=== PATIENT | female | born 1955 | race Caucasian/White ===

== ENCOUNTER 2016-10-07 13:46 | Emergency (ER) | payer OTHER ==
[2016-10-07 13:53] VITALS: TEMP 98.8
--- NOTE | 2016-10-07 14:14 | EDPHY ---
H & P Stated Complaint: Chest Pressure x 4 Days Time Seen by Provider: 10/07/16 14:13 HPI/ROS: CHIEF COMPLAINT: Chest pressure, mild dyspnea HISTORY OF PRESENT ILLNESS: The patient presents to the ED for evaluation of chest pressure and mild dyspnea. The patient is approximately 1 week out from a right shoulder repair. The patient did have some postoperative hypoxemia. This has improved over the past day. The patient reports 3-4 day history of a vagal left-sided chest fullness. The symptoms are worsened with swallowing deep breaths. It is not uniformly pleuritic. The patient denies exertional chest pain or shortness of breath. She has had a low-grade fever of 99-100. She has no complaints of cough. The patient has no prior history of PE or DVT. She does not smoke nor is there a family history of thromboembolic event. REVIEW OF SYSTEMS: A comprehensive 10 point review of systems is otherwise negative aside from elements mentioned in the history of present illness. Source: Patient Exam Limitations: No limitations - Personal History Current Tetanus Diphtheria and Acellular Pertussis (TDAP): Yes Tetanus Vaccine Date: 2006 - Medical/Surgical History Hx Asthma: No Hx Chronic Respiratory Disease: No Hx Diabetes: No Hx Cardiac Disease: No Hx Renal Disease: No Hx Cirrhosis: No Hx Alcoholism: No Hx HIV/AIDS: No Hx Splenectomy or Spleen Trauma: No Other PMH: HTN / lung+Thoracic aorta cyst surgery. Hormone replacement therapy , recurrent bronchitis, cholesterol, sinus surg, spinal fusion L4-L5, R rotator cuff - Social History Smoking Status: Never smoked - Physical Exam Exam: General Appearance: Alert, no distress Eyes: Pupils equal and round no pallor or injection ENT, Mouth: Mucous membranes moist Respiratory: There are no retractions, lungs are clear to auscultation Cardiovascular: Regular rate and rhythm Gastrointestinal: Abdomen is soft and nontender, no masses, bowel sounds normal Neurological: A&O, normal motor function, normal sensory exam, normal cranial nerves Skin: Warm and dry, no rashes Musculoskeletal: Neck is supple nontender Extremities: Splint to the right shoulder, incision clean dry and intact Constitutional: Initial Vital Signs Temperature (C) 37.1 C 10/07/16 13:49 Heart Rate 61 10/07/16 13:49 Respiratory Rate 18 10/07/16 13:49 Blood Pressure 124/61 H 10/07/16 13:49 O2 Sat (%) 95 10/07/16 13:49 O2 Delivery Mode Room Air Allergies/Adverse Reactions: acetaminophen [From Vicodin] Allergy (Verified 09/14/15 20:12) hydrocodone bitartrate [From Vicodin] Allergy (Verified 09/14/15 20:12) Home Medications: Medication Instructions Recorded Rosuvastatin Calcium [Crestor 40mg mg PO DAILY 10/20/11 (RX)] Venlafaxine HCl 50 mg PO 10/20/11 Aspirin [Aspirin 325 mg (OTC)] 09/14/15 Ciprofloxacin [Cipro] 500 mg PO BID #4 tab 09/14/15 Hydrochlorothiazide [HCTZ (RX)] 09/14/15 Nebivolol HCl [Bystolic] 09/14/15 Omeprazole [Prilosec 20 mg] 09/14/15 Medical Decision Making - Diagnostics EKG Interpretation: EKG: Complete interpretation has been separately recorded in the [facility] archive. Summary impression: Sinus rhythm, rate 57 Imaging: Imaging Impressions Chest/Thorax CTA 10/07/16 15:17 Impression: 1. No evidence for pulmonary embolic disease. 2. Dilated distal esophagus. Scleroderma? Results discussed with Dr. Wolfgang Meléndez at 4:09 PM. General information for patients regarding this examination can be found at [email or web address]. If you have questions or comments about this report, please contact me at (hospital) or [phone] (cell). ED Course/Re-evaluation: Patient presents to the ED for evaluation of vague left-sided chest pain. The patient has no evidence of a pulmonary embolism or pneumonia on her chest CT scan. She does have a mildly dilated esophagus which she has had before in the past of uncertain significance. The patient has no evidence of acute ischemia on her EKG. The patient does have mild esophageal dilatation of uncertain significance. She can follow this up with Gastroenterology as an outpatient. Differential Diagnosis: Differential diagnosis considered includes acute coronary syndrome, pulmonary embolism, aspiration pneumonia, pneumothorax - Data Points Laboratory Results: 10/07/16 15:08 POC Hgb 13.9 gm/dL gm/dL (12.3-15.9) POC Hct 41 % % (35.5-47.5) POC Sodium 138 mEq/L mEq/L (134-144) POC Potassium 4.7 mEq/L mEq/L (3.3-5.0) POC Chloride 97 mEq/L mEq/L (96-108) POC BUN 15 mg/dL mg/dL (7-23) POC Creatinine 0.6 mg/dL mg/dL (0.6-1.2) POC Glucose 89 mg/dL mg/dL (70-100) Point of Care Test Results: 10/07/16 15:08 POC Sodium 138 POC Potassium 4.7 POC Chloride 97 POC BUN 15 POC Creatinine 0.6 POC Glucose 89 Departure - Departure Disposition: Home, Routine, Self-Care Clinical Impression: Chest pain Condition: Good Instructions: Chest Pain (ED) Additional Instructions: 1. Your CT scan demonstrates no evidence of a blood clot, pneumonia or collapsed lung. You do have some mild dilation of your esophagus which has been seen in the past. The clinical significance of this is somewhat uncertain. We do recommend following up with Gastroenterology as this may be contributing to your symptoms today. 2. Please follow up as scheduled with your primary care provider. Please schedule a follow-up visit with gastroenterology to review the results of your CT scan over the next several weeks. 3. Return to the ED for markedly worsening symptoms or other concerns. Referrals: Tamiko Tadeo MD [Primary Care Provider] - As per Instructions
--- NOTE | 2016-10-07 14:19 | CPEKG ---
Heart Rate: 57 RR Interval: 1053 P-R Interval: 204 QRSD Interval: 90 QT Interval: 412 QTC Interval: 401 P [place]: 40 QRS [place]: 25 T Wave [place]: 59 EKG Severity - NORMAL ECG - EKG Impression: SINUS RHYTHM Electronically Signed By: Vasyl Meléndez 07-Oct-2016 17:06:40
[2016-10-07] MEDS ORDERED: IOPAMIDOL (ISOVUE 370) 100 ML BTL IV ONE (15:34)
[2016-10-07 16:11] VITALS: RESP 16
[2016-10-07 16:52] VITALS: BP 120/61; PULSE 53; O2SAT 93
== END 2016-10-07 16:52 | disposition home or self-care (01) ==
DX: R07.89 Other chest pain (principal); I10 Essential (primary) hypertension; Z79.82 Long term (current) use of aspirin
CPT/HCPCS: 82947-QW; Q9967

== ENCOUNTER → 2017-02-01 | Outpatient (CLI) | payer OTHER | LOC: FIMAGING 16:03 | PROVIDERS: ATTEND Internal Medicine | DX: Z12.31 Encounter for screening mammogram for malignant neoplasm of breast (principal) | CPT/HCPCS: G0202 ==

== ENCOUNTER → 2018-09-22 | Outpatient (CLI) | payer OTHER | LOC: EMCIMAGING 07:16 | PROVIDERS: ATTEND Internal Medicine | DX: R19.00 Intra-abdominal and pelvic swelling, mass and lump, unspecified site (principal); K76.0 Fatty (change of) liver, not elsewhere classified | CPT/HCPCS: 76700-PN ==

== ENCOUNTER → 2018-10-12 | Outpatient (CLI) | payer OTHER | LOC: EMCIMAGING 07:20 | PROVIDERS: ATTEND Internal Medicine | DX: R94.6 Abnormal results of thyroid function studies (principal); E04.1 Nontoxic single thyroid nodule | CPT/HCPCS: 76536-PN ==

== ENCOUNTER 2018-11-08 07:08 | Observation (INO) | payer OTHER ==
--- NOTE | 2018-11-08 06:54 | POSTANESTH ---
Post Anesthetic Evaluation Cardiovascular Status: Similar to Pre-Op Cond Respiratory Status: Normal, Stable Level of Consciousness/Mental Status: Can Participate in Eval, Alert and Oriented Pain Control: Adequate, Prn Tx Ordered Nausea/Vomiting Control: Adequate, Prn Tx Ordered Complications Possibly Related to Anesthesia: None Noted (MAC only, no meds administered.)
--- NOTE | 2018-11-08 06:58 | PDANEPAE ---
ANE History of Present Illness 63 yo with SVT, possibly AT, for ablation. ANE Past Medical History - Cardiovascular History Hx Hypertension: Yes Hx Arrhythmias: Yes Hx Chest Pain: No Hx CHF / Valvular Disease: No Hx Palpitations: Yes Cardiovascular History Comment: hypercholesterolemia - Pulmonary History Hx COPD: No Hx Asthma/Reactive Airway Disease: No Hx Recent Upper Respiratory Infection: No Hx Oxygen in Use at Home: No Hx Sleep Apnea: No Pulmonary History Comment: recurrent bronchitis. benign mass resected from L chest in the past - Endocrine History Hx Diabetes: No Hypothyroid: No Hyperthyroid: No Obesity: no - Renal History Hx Renal Disorders: No - Liver History Hx Hepatic Disorders: No - GI History Gastrointestinal History Comment: dilated distal esophagus - Chronic Pain History Chronic Pain: No - Surgical History Prior Surgeries: shoulder surgery ANE Review of Systems Review of Systems: - Systems Respiratory: Reports: shortness of breath ANE Patient History - Allergies Allergies/Adverse Reactions: acetaminophen [From Vicodin] Allergy (Verified 10/18/18 10:30) Vomiting hydrocodone bitartrate [From Vicodin] Allergy (Verified 10/18/18 10:30) Vomiting - Home Medications Home Medications: Aspirin [Aspirin 81mg (*)] 81 mg PO DAILY 10/19/18 [Last Taken Unknown] Cholecalciferol Vit D3 [Vitamin D3 (*)] 3,000 units PO DAILY 10/19/18 [Last Taken Unknown] Estradiol [VAGIFEM] 10 mcg VG Q3D 10/19/18 [Last Taken Unknown] Herbals/Supplements -Info Only 1 ea PO DAILY 10/19/18 [Last Taken Unknown] Hydrochlorothiazide [HCTZ (*)] 25 mg PO DAILY 10/19/18 [Last Taken Unknown] Multivitamins [Multivitamin (*)] 1 each PO DAILY 10/19/18 [Last Taken Unknown] [place]-3 Fatty Acids [Fish Oil 1000 mg (*)] 1,000 mg PO DAILY 10/19/18 [Last Taken Unknown] Rosuvastatin Calcium [Crestor 10mg (RX)] 2.5 mg PO DAILY 10/19/18 [Last Taken Unknown] tiZANidine HCL [Zanaflex 2MG (*)] 2 mg PO HS 10/19/18 [Last Taken Unknown] - NPO status NPO Status: no food or drink >8 hours NPO Since - Liquids (Date): 05/15/19 NPO Since - Liquids (Time): 05:45 - Anes Hx Anes Hx: post operative nausea and vomiting - Smoking Hx Smoking Status: Never smoked - Family Anes Hx Family Anes Hx: neg - N/A ANE Labs/Vital Signs - Labs Result Diagrams: 11/08/18 07:30 11/08/18 07:30 - Vital Signs Vital Signs: reviewed preoperatively; see RN documention for details ANE Physical Exam - Airway Neck exam: FROM Mallampati Score: Class 2 Mouth exam: normal dental/mouth exam - Pulmonary Pulmonary: clear to auscultation - Cardiovascular Cardiovascular: regular rate and rhythym - ASA Status ASA Status: III ANE Anesthesia Plan Anesthesia Plan: general endotracheal anesthesia Total IV Anesthesia: Yes
[2018-11-08] MEDS ORDERED: NS 1,000 ML IV ONE (07:11)
[2018-11-08] MEDS ORDERED: LIDOCAINE 1% 300 MG/30 ML SDV ONE (08:04)
[2018-11-08] MEDS ORDERED: HEPARIN 10,000 UNIT/10 ML MDV (1,000 UNIT/ML) ONE (08:04)
[2018-11-08] MEDS ORDERED: BUPIVACAINE 0.5% 30 ML SDV ONE (08:04)
[2018-11-08] MEDS ORDERED: ISOPROTERENOL HCL/D5W 0.2 MG/50 ML BAG IV ONE ×2 (08:05→10:29)
[2018-11-08] MEDS ORDERED: IOPAMIDOL (ISOVUE-300) 100 ML BTL ONE (08:05)
[2018-11-08 08:09] LABS: PLATELET COUNT 230 10^3/uL (150-400)
--- NOTE | 2018-11-08 08:25 | PDGENHP ---
History & Physical Chief Complaint: SVT/AT, dyspnea History of Present Illness: 2 recent episodes of chest pain, intermittent dyspnea at rest and with exertion, SVT/AT noted on recent extended ECG monitor Relevant Physical Exam: A&Ox4, no apparent distress, lungs CTA, regular rate and rhythm, S1, S2, pulses 2+ bilaterally, no edema Cardiorespiratory Assessment: Coronary angiogram and SVT/AT ablation was planned for today
[2018-11-08 08:28] LABS: INR 0.87 (0.83-1.16); PROTIME(PATIENT) 11.5 SEC (12.0-15.0)
[2018-11-08] MEDS ORDERED: PROPOFOL/EMULSION 500 MG/50 ML BOTTLE IV ONE ×4 (08:57→11:04)
[2018-11-08] MEDS ORDERED: MIDAZOLAM 2 MG/2 ML VIAL ONE ×2 (08:57)
[2018-11-08] MEDS ORDERED: fentaNYL 100 MCG/2 ML INJ ONE (08:57)
[2018-11-08] MEDS ORDERED: ROCURONIUM 100 MG/10 ML VIAL ONE (09:10)
[2018-11-08] MEDS ORDERED: NEOSTIGMINE METHYLSULFATE 10 MG/10 ML MDV ONE (11:34)
[2018-11-08] MEDS ORDERED: GLYCOPYRROLATE 0.2 MG/1 ML VIAL ONE (11:34)
--- NOTE | 2018-11-08 12:57 | EPPROC ---
Electrophysiology Procedure Note: ELECTROPHYSIOLOGIC STUDY AND CATHETER MEDIATED ABLATION OF FOCAL PARAHISIAN ATRIAL TACHYCARDIA PROCEDURES PERFORMED: 1. EP evaluation with RA/RV/LA pace/record, with arrhythmia induction 2. EP evaluation with RA/RV pace record, insert/reposition catheter, with arrhythmia induction 3. Intracardiac catheter ablation, SVT arrhythmogenic focus 4. 3D mapping 5. Fluoroscopy INDICATION: Recurrent atrial tachycardia Catheters and anesthesia: The patient arrived in the Electrophysiology Laboratory in the fasting state. The right clavicular region, right groin, and left groin area were prepped and draped in the usual sterile manner. Anesthesiologist Dr. Chucky Singleton administered propofol anesthesia. Appropriate non-invasive blood pressure, pulse oximetry and end-tidal CO2 monitoring was established. All catheters were placed percutaneously using the modified Seldinger technique , and advanced into position under fluoroscopic guidance. One #7 [place] deflectable octapolar electrode catheter was advanced to the His-bundle position via the left femoral vein (2mm spacing; except the proximal ring which was 25cm from the tip used for unipolar recordings). One #7 [place] deflectable catheter with 10 pairs of electrodes was placed via the left femoral vein into the coronary sinus. A decapolar MEM (multielectrode mapping) catheter was placed via the right femoral vein along the karyn terminalis and used to map the right atrium and coronary sinus. Programmed stimulation was performed from the right atrium, left atrium ( coronary sinus) and right ventricle. Parahisian pacing demonstrated VA block. There was no antegrade or retrograde slow AV fly pathway conduction. AV WBB 420 ms both pre and post ablation. Heparin was administered to keep ACT > 200 seconds. Programmed stimulation of right atrium during infusion of isoproterenol 1-2 mcg/ min induced an atrial tachycardia. AV dissociation was present. A #7 [place] mapping catheter was introduced into the right atrium and used for mapping AT . Mobi sheath was used. A 3D mapping system (Carsquare) was used. Pentaray and 4 mm catheters were used. A detailed 3D map of the right atrium and coronary sinus showed earliest atrial activation along the septal tricuspid valve, just lateral to the AV node. Unipolar EGM showed sharp negative deflection without R wave. RF applications were delivered to this site. This terminated the tachycardia. 2 of the RF ablations demonstrated junctional automaticity and ablation was promptly terminated. Programmed stimulation in the baseline state and during infusion of isoproterenol 1, 2 and 4 mcg/min post ablation was performed. No tachycardia could be induced. The catheters were removed. The patient was transferred to the cardiovascular holding area in stable condition. Vascular access sheaths were removed in the EP lab after pursestring sutures. Arterial access site was closed with Angioseal (coronary angiogram was done and this has been dictated separately.) There were no apparent complications. CONCLUSIONS: 1. Focal atrial tachycardia, parahisian focus. 2. Successful ablation of focal atrial tachycardia. 3. No apparent complications.
--- NOTE | 2018-11-08 12:59 | PDDXCAT ---
Diagnostic Cath Note - . Date: 11/08/18 Dispatcher Tow Truck: Xavier Indication: CCC Class III and IV angina on medical treatment - Procedure Access: right groin Procedure: left heart catheterization, coronary angiography - Materials Left Heart Cath size: 6F Left Heart Cath materials: JL4.0, JR4.0 - Findings-Left Heart Catheterization LM: normal LAD: normal, tortuous, 2 diagonals LCX: normal RCA: large, dominant, normal Estimated blood loss: <50ml Closure method: Angioseal Assessment: Normal coronary arteries. False positive stress test
[2018-11-08] MEDS: ACETAMINOPHEN 325 MG TAB PO PRN ×2 (13:37→21:10)
[2018-11-08] MEDS ORDERED: IBUPROFEN 600 MG TAB PO PRN (16:25)
[2018-11-08] MEDS ORDERED: tiZANidine HCL 2 MG TAB PO SCH (21:00)
[2018-11-09 04:33] LABS: PLATELET COUNT 216 10^3/uL (150-400)
[2018-11-09] MEDS ORDERED: Herbals/Supplements -Info Only PO SCH (09:00)
[2018-11-09] MEDS ORDERED: ASPIRIN 81 MG CHEWABLE TAB PO SCH (09:00)
[2018-11-09] MEDS ORDERED: MULTIVITAMINS 1 EACH TAB PO SCH (09:00)
[2018-11-09] MEDS ORDERED: OMEGA-3 FATTY ACIDS 1,000 MG CAP PO SCH (09:00)
[2018-11-09] MEDS ORDERED: CHOLECALCIFEROL VIT D3 1,000 UNITS TAB PO SCH (09:00)
[2018-11-09] MEDS ORDERED: ROSUVASTATIN CALCIUM 10 MG TAB PO SCH (09:00)
[2018-11-09] MEDS ORDERED: HYDROCHLOROTHIAZIDE 25 MG TAB PO SCH (09:00)
[2018-11-09 11:31] VITALS: BP 157/95
[2018-11-09] MEDS ORDERED: FLECAINIDE ACETATE 100 MG TAB PO SCH (12:30)
--- NOTE | 2018-11-09 13:21 | GDS ---
[f rep st] DISCHARGE SUMMARY SUPERVISING CUSTOMER SOLUTIONS SPECIALIST: Dr. Jevon Park. ADMISSION DIAGNOSIS: Atrial tachycardia. DISCHARGE DIAGNOSES: Focal atrial tachycardia, parahisian focus status post successful ablation. PROCEDURES PERFORMED DURING HOSPITALIZATION: 1. Electrocardiogram. 2. Echocardiogram. 3. Electrophysiology study. 4. Atrial tachycardia ablation. HOSPITAL COURSE: Patient presented 11/08/2018, for EP study and SVT ablation in the setting of recurrent and symptomatic episodes of SVT. EP study demonstrated a parahisian focal atrial tachycardia, which was successfully ablated. She had no intra-procedure complications and she did very well overnight. However, she has had frequent episodes of atrial tachycardia noted on telemetry, these episodes are symptomatic and quite bothersome. She will be started on flecainide 50 mg twice daily and she will be discharged home in stable condition today. PHYSICAL EXAMINATION: GENERAL: Alert and oriented x4. No apparent distress. VITAL SIGNS: Blood pressure 119/82, heart rate 69, respiratory rate 18, SpO2 is 92% on room air, temp 36.7 degrees Celsius. RESPIRATORY: Lungs are clear to auscultation without adventitious breath sounds. CARDIAC: Irregularly irregular rhythm. Tachycardia present. No murmurs noted. ABDOMEN: Normoactive bowel sounds times all 4 quadrants. No masses or tenderness. Soft to palpation. SKIN: [place], warm, dry without cyanosis, clubbing, or peripheral edema. EXTREMITIES: Bilateral pursestring sutures removed intact without evidence of hematoma, redness, oozing, swelling or warmth from the sites. Pulses are 2+ bilaterally. No edema. LABORATORY STUDIES: Drawn today, demonstrates stable CBC and BMP compared to preprocedure. Troponin is 0.292. Please note the elevated troponin is to be expected in the postprocedure setting. PROCEDURES PERFORMED DURING HOSPITALIZATION: Electrophysiology study and atrial tachycardia ablation as mentioned above. Preliminary review of echocardiogram this morning demonstrates stable systolic function without any wall motion abnormalities or pericardial effusion noted. Electrocardiogram this morning demonstrates ectopic atrial arrhythmia 102 beats per minute. DISCHARGE DISPOSITION: The patient will be discharged home in stable condition. She is under activity restrictions as below. DISCHARGE MEDICATIONS: Please see discharge medication reconciliation sheet for full details. Please note, the patient will continue aspirin daily for at least the next 4 weeks and she will start flecainide 50 mg twice daily. DISCHARGE INSTRUCTIONS: Post atrial tachycardia ablation instructions were reviewed with patient and her in detail. 1. We discussed activity restrictions including lifting no more than 10 pounds and avoidance of submerged bathing for 10 days. 2. She will get up and walk around every 45 minutes for 45 days. 3. We reviewed bleeding precautions, medication plans, monitoring for signs and symptoms of infection, and monitoring for sustained arrhythmia. At the time of discharge, the patient verbalized understanding regarding all discharge instructions without questions or concerns. She will be seen in our Electrophysiology Clinic in 1 week for an EKG and re-evaluation at that time. She will contact us with any new or concerning symptoms in the meantime. Time spent on discharge greater than 30 minutes. /[id number]/MODL MTDD
--- NOTE | 2018-11-09 14:04 | ASDISCHSUM ---
Discharge Information Plan Status:Home with No Needs Medically Cleared to Leave:11/09/2018 Discharge Date:11/09/2018 CM D/C Disposition:Home, Routine, Self-Care ADT D/C Disposition:Home, Routine, Self-Care Projected Discharge Date:11/09/2018 Transportation at D/C:Family Discharge Delay Reason: Follow-Up Date:11/09/2018 Discharge Slot: Final Diagnosis: Placement Information Patient Contact Information Contact Name:DESI Relationship: Address:[address] [place] Phone: [facility]/Zip Code:[place] [address] Email: Financial Information Financial Class:HMO and PPO Plans Primary Plan Desc:[facility] Primary Plan Number:[id number] Secondary Plan Desc: Secondary Plan Number: Assessment Information LACE LACE Length of stay for Answers: 1 day current admission Acuity / Level of Answers: No Care: Did the patient have an inpatient admission? Comorbidities - select Answers: Other Notes: HTN all that apply # of Emergency department Answers: 0 visits in the last 6 months Score: 2 Date Signed: 11/09/2018 02:03 PM Electronically Signed By:Anuja Gill RN Intervention Information
--- NOTE | 2018-11-09 16:33 | ECHO ---
[email or web address] [address] [address] Main: [phone] Echocardiography Examination Transthoracic Name: DUSTIN MOORE MR#: [id number] Study Date: 11/09/2018 Study Time: 09:33 AM Date of : 1955 Age: 63 year(s) Height: 165.1 cm (65 in.) Weight: 76.2 kg (168 lb.) BSA: 1.84 m2 Gender: Female Examination: Echo Contrast: Image Quality: Adequate Rhythm: Heart Rate: BP: 119 mmHg/82 mmHg Indication: F/U Post EP Study Procedure Staff Referring Physician: Development Scientist: Tiffani Hernandez [facility] Reading Physician: Sarai Patino MD Requesting Provider: Ordering Physician: Robert Verdugo Indication: F/U Post EP Study Measurements Chambers AV/MV Label Value Normal Value Label Value Normal Value LVOTd 1.6 cm (1.8cm - 2cm) AV PGmax 7 mmHg LVOT VTI 23.5 cm (18cm - 22cm) AV PGmean 5 mmHg LVDd, 2D 3.9 cm (3.9cm - 5.3cm) AV Vmax 1.36 m/s LVDs, 2D 2.8 cm (2.1cm - 4cm) JESSICA (VTI) 1.4 cm2 IVSd, 2D 1 cm (0.6cm - 1.1cm) MV E Vmax 1.2 m/s LVPWd, 2D 1.1 cm MV DT 99 ms LVEF, BP 62 % (55% - 70%) MV PHT 0.02 s LVEF, 2D 56 % (54% - 74%) MVA PHT 10.5 cm2 LVOT PGmean 3 mmHg MV PHT 21 ms LVOT Vmean 0.76 m/s TV/PV RVDd, 2D 3 cm (1.9cm - 3.8cm) Label Value Normal Value LA Volume, BP 45 ml (22ml - 52ml) RA Pressure 5 mmHg LADs, 2D 3.5 cm (2.7cm - 3.8cm) RVSP 29 mmHg LAESV index, BP 24.5 ml/m2 TR Pmax 24 mmHg RA Area 11.3 cm2 TR Vmax 2.44 m/s Additional Vessels PV PGmax 4 mmHg Label Value Normal Value PV Vmax, Caliper 1.03 m/s (0.6m/s - 0.9m/s) AoAsc 3.2 cm AoRoot, 2D 3.1 cm (1.4cm - 2.6cm) Patient: DUSTIN MOORE Study Date: 11/09/2018 Page 1 of 2 09:33 AM IVC 1.4 cm (1.2cm - 2.3cm) Conclusions 1. The left ventricle is normal in size and systolic function. Ejection fraction is 60%. No regional wall motion abnormalities. 2. The right ventricle is normal in size and systolic function. 3. Mild mitral regurgitation. 4. Mild tricuspid regurgitation with normal estimated pulmonary pressure. 5. No pericardial effusion. 6. Compared with 08/28/2018 overall similar findings Findings Left Ventricle: Left ventricle is normal in size. Normal global systolic left ventricular function. The ejection fraction, measured by Simpsons method, is 62 %. EF range is estimated at 60 % - 65 %. Left ventricle wall thickness is normal. There are no regional wall motion abnormalities. No LV hypertrophy. Right Ventricle: Normal size right ventricle. Right ventricular systolic function is normal. Left Atrium: The left atrium is normal in size. Right Atrium: The right atrium is normal in size. Mitral Valve: Mitral valve appears structurally normal. Mild mitral regurgitation. No mitral valve stenosis. Aortic Valve: Aortic leaflets are structurally normal. No significant aortic valve regurgitation. There is no aortic stenosis. Tricuspid Valve: Tricuspid valve leaflets are structurally normal. Mild tricuspid regurgitation. No tricuspid valve stenosis. Right Ventricular systolic pressure is measured at 29 mmHg. Pulmonary artery pressure normal. Pulmonic Valve: Pulmonic leaflets are structurally normal. Trivial pulmonic valve regurgitation is present. Aorta: The aortic root size in 2D measures 3.1 cm. The ascending aorta measures 3.2 cm. Aorta Measurements AoRoot, 2D is 3.1 cm. IVC: The inferior vena cava is normal in size. Pericardium: No pericardial effusion. Exam Details Procedure Ordered: Echo Procedure Status: Routine study Image Quality: Adequate Facility Location: Bedside (No Signature Object) Patient: DUSTIN MOORE Study Date: 11/09/2018 Page 2 of 2 09:33 AM [id number]
--- NOTE | 2018-11-13 13:29 | CPEKG ---
Test Reason : OPEN Blood Pressure : / mmHG Vent. Rate : 054 BPM Atrial Rate : 053 BPM P-R Int : 197 ms QRS Dur : 092 ms QT Int : 430 ms P-R-T Axes : 044 017 052 degrees QTc Int : 408 ms Sinus rhythm Confirmed by Jevon Park ([id number]) on 11/13/2018 1:29:24 PM Referred By: Jevon Park Confirmed By:Jevon Park
--- NOTE | 2018-11-13 13:50 | CPEKG ---
Test Reason : OPEN Blood Pressure : / mmHG Vent. Rate : 055 BPM Atrial Rate : 055 BPM P-R Int : 257 ms QRS Dur : 094 ms QT Int : 451 ms P-R-T Axes : 051 020 039 degrees QTc Int : 432 ms Sinus rhythm Prolonged UT interval Confirmed by Jevon Park ([id number]) on 11/13/2018 1:50:07 PM Referred By: Jevon Park Confirmed By:Jevon Park
--- NOTE | 2018-11-13 13:57 | CPEKG ---
Test Reason : OPEN Blood Pressure : / mmHG Vent. Rate : 102 BPM Atrial Rate : 103 BPM P-R Int : 261 ms QRS Dur : 082 ms QT Int : 362 ms P-R-T Axes : 254 021 044 degrees QTc Int : 472 ms Sinus or ectopic atrial tachycardia Confirmed by Jevon Park ([id number]) on 11/13/2018 1:56:39 PM Referred By: Jevon Park Confirmed By:Jevon Park
== END 2018-11-09 14:05 | disposition home or self-care (01) ==
LOC: FCATH 07:08 → F2N 11:41 → F2W 13:20
PROVIDERS: ADMIT Internal Medicine Cardiovascular Disease; ATTEND Internal Medicine Cardiovascular Disease
DX: I47.1 Supraventricular tachycardia (principal); I10 Essential (primary) hypertension; E78.5 Hyperlipidemia, unspecified; F32.9 Major depressive disorder, single episode, unspecified
CPT/HCPCS: 93005; 93306; 93458; 93613; 93621; 93623; 93653; C1730; C1732; G0378; C1731; C1760; C1766; J1644; J2250; J2704; J3010; Q9967

== ENCOUNTER 2018-11-30 06:58 | Observation (INO) | payer OTHER | END 2018-12-01 10:40 | disposition home or self-care (01) | LOC: F2W 06:58 → FCATH 06:58 → F2W 11:00 ==